=== PATIENT | female | born 1995 | race Caucasian/White ===

== ENCOUNTER 2018-12-24 08:29 | Emergency (ER) | payer OTHER, MEDICAID ==
[~2018-12-24] VITALS: Ht 172.7 cm; Wt 75.0 kg
[~2018-12-24 08:29] MED LIST: ALBU18HF INHALATION; IPRA3AMP29 INHALATION; PRED20TA PO; QUET25TA PO; SYMB80120 INHALATION
[2018-12-24 08:32] VITALS: Ht 172.7 cm; Wt 75.0 kg
[2018-12-24] MEDS ORDERED: ALBUTEROL 0.5% (NEB) 2.5 MG/0.5 ML AMP INH STA (08:56)
[2018-12-24] MEDS ORDERED: METHYLPREDNISOLONE 125 MG INJ IV STA (08:56)
[2018-12-24] MEDS ORDERED: LEVALBUTEROL (NEB) 1.25 MG/0.5 ML AMP INH STA (08:59)
[2018-12-24] MEDS ORDERED: CEFTRIAXONE 1 GM/50 ML (PMX) 50 ML IVPB ONE (10:00)
[2018-12-24] MEDS ORDERED: PHENOBARBITAL 32.4 MG TAB PO ONE (13:00)
[2018-12-24] MEDS ORDERED: ONDANSETRON 4 MG INJ IV PRN (13:30)
[2018-12-24] MEDS ORDERED: ACETAMINOPHEN 325 MG TAB PO PRN (13:30)
[2018-12-24] MEDS ORDERED: ALBUTEROL/IPRATROPIUM (NEB) 3 ML AMP HHN STA (15:39)
[2018-12-24 17:27] VITALS: BP 110/80; PULSE 71; RESP 26
== END 2018-12-24 17:27 | disposition home or self-care (01) ==
LOC: E/R 08:29 → CANRESERV 15:47 → E/R 17:27 → CANBEDREQ 17:50
DX: J45.41 Moderate persistent asthma with (acute) exacerbation (principal); R09.02 Hypoxemia
CPT/HCPCS: 71045; 80053; 85025; 94644; 94664; 96374; 96375; 99284; J0696; J2930; 94640